=== PATIENT | male | born 2000 | race Caucasian/White ===

== ENCOUNTER 2020-02-07 08:06 | Inpatient (IN) | payer OTHER ==
[~2020-02-07] VITALS: Ht 177.8 cm; Wt 75.2 kg
[2020-02-07 09:42] LABS: BASOPHILS ABSOLUTE AUTO 0.06 K/mm3 (0.00-0.23); BASOPHILS PERCENT AUTO 0 % (0-2); EOSINOPHILS ABSOLUTE AUTO 0.01 K/mm3 (0.00-0.68); EOSINOPHILS PERCENT AUTO 0 % (0-6); Hematocrit 47.2 % (37.0-53.0); Hemoglobin 15.4 g/dL (13.5-17.5); IMMATURE GRAN ABSOLUTE AUTO 0.09 K/mm3 (0.00-0.10); IMMATURE GRAN PERCENT AUTO 1 % (0-1); LYMPHOCYTES ABSOLUTE AUTO 1.92 K/mm3 (0.84-5.20); LYMPHOCYTES PERCENT AUTO 10 % (21-46); MONOCYTES ABSOLUTE AUTO 1.89 K/mm3 (0.16-1.47); MONOCYTES PERCENT AUTO 10 % (4-13); Mean Corpuscular HGB 27.6 pg (26.0-34.0); Mean Corpuscular HGB Conc 32.6 g/dL (31.5-36.5); Mean Corpuscular Volume 85 fL (80-100); Mean Platelet Volume 8.6 fL (9.1-12.4); NEUTROPHILS PERCENT AUTO 79 % (41-73); Platelet Count 321 K/mm3 (150-400); RDW Coefficient Variation 12.1 % (11.7-14.2); RDW Standard Deviation 37.1 fL (35.1-46.3); Red Blood Cell Count 5.58 M/mm3 (4.30-5.90); White Blood Cell Count 18.97 K/mm3 (4.00-11.30)
[2020-02-07 10:05] LABS: Alanine Aminotransfer (ALT/SGP 18 U/L (12-78); Albumin, Blood 3.9 g/dL (3.4-5.0); Albumin/Globulin Ratio 0.8 (0.8-1.8); Alk Phos 66 U/L (58-237); Anion Gap 7 mmol/L (6-16); Aspartate Aminotrans (AST/SGOT 18 U/L (12-37); Blood Urea Nitrogen 7 mg/dL (8-21); Bun/Creatinine Ratio 8.3 (12.0-20.0); CO2, Blood 24 mmol/L (21-32); Chloride, Blood 107 mmol/L (98-108); Creatinine, Blood 0.84 mg/dL (0.60-1.20); Globulin, Blood 4.9 g/dL (2.2-4.0); Glomerular Filtration Rate >60 (60-); Glucose, Blood 91 mg/dL (70-99); Potassium, Blood 3.7 mmol/L (3.5-5.5); Sodium, Blood 138 mmol/L (136-145); Total Protein, Blood 8.8 g/dL (6.4-8.2)
[2020-02-07] MEDS ORDERED: FLUT.05NI (12:47)
--- NOTE | 2020-02-07 17:29 | NUR ---
ADMIT NOTE/SHIFT SUMMARY RECEIVED REPORT FROM HOMERO LENZ IN ED. PT TO ROOM AT APPROX 1240; PT SBA TRANSFERED TO BED. PT ORIENTED TO ROOM AND CALL LIGHT; EDUCATED ON FALL RISK AND USE OF CALL LIGHT. SWELLING NOTED TO RIGHT SIDE OF NECK. PT REPORTS SORE THOART STARTING APPROX 11 DAYS AGO, YESTERDAY HE TOOK A DRINK AND WAS UNABLE TO SWALLOW AND REPORTS DIFFICULTY BREATHING. PT A&Ox4; CALM AND COOPERATIVE WITH CARE. PT RESTING IN BED FOR MAJORITY OF SHIFT, UP IN ROOM IND. PT REPORTS THOART PAIN, MEDCIATED IN ED WITH TYLENOL PRIOR TO ADMISSION, PER REPORT PT IS ABLE TO SWALLLOW PILLS ONE AT A TIME BUT HAS DIFFICULTY TAKING WITH WATER. [T DENIES NASUEA, HAS HAD POOR APPETEITE DUE TO SORE THOART, BUT REQUESTING FOOD THIS EVENING. PT DENIES DIZZINESS DURING SHIFT. VSS. STARTED IV FLUIDS, IV ANTIBIOTICS AND IV STEROIDS. WILL CONTINUE TO MONITOR UNTIL REPORT GIVEN TO ONCOMING RN.
[2020-02-08 03:36] LABS: BASOPHILS ABSOLUTE AUTO 0.02 K/mm3 (0.00-0.23); BASOPHILS PERCENT AUTO 0 % (0-2); EOSINOPHILS PERCENT AUTO 0 % (0-6); Hematocrit 42.1 % (37.0-53.0); Hemoglobin 13.8 g/dL (13.5-17.5); IMMATURE GRAN ABSOLUTE AUTO 0.07 K/mm3 (0.00-0.10); IMMATURE GRAN PERCENT AUTO 0 % (0-1); LYMPHOCYTES ABSOLUTE AUTO 1.28 K/mm3 (0.84-5.20); LYMPHOCYTES PERCENT AUTO 8 % (21-46); MONOCYTES ABSOLUTE AUTO 0.89 K/mm3 (0.16-1.47); MONOCYTES PERCENT AUTO 6 % (4-13); Mean Corpuscular HGB 27.8 pg (26.0-34.0); Mean Corpuscular HGB Conc 32.8 g/dL (31.5-36.5); Mean Corpuscular Volume 85 fL (80-100); Mean Platelet Volume 8.9 fL (9.1-12.4); NEUTROPHILS ABSOLUTE AUTO 13.89 K/mm3 (1.96-9.15); NEUTROPHILS PERCENT AUTO 86 % (41-73); Platelet Count 320 K/mm3 (150-400); RDW Coefficient Variation 11.9 % (11.7-14.2); RDW Standard Deviation 36.1 fL (35.1-46.3); Red Blood Cell Count 4.96 M/mm3 (4.30-5.90); White Blood Cell Count 16.15 K/mm3 (4.00-11.30)
--- NOTE | 2020-02-08 06:40 | NUR ---
SHIFT SUMMARY PT A&O; COMPLIANT W/ CARE; VSS; HR 60'S; NSR NOTED ON TELE W/ JUNCTIONAL; O2 SATS >93 ON RA; INDEPENDENT IN ROOM; WAS ABLE TO EAT A SANDWICH AND STATED HE WAS FEELING IMPROVED; REDNESS AND SLIGHT SWELLING NOTED IN THROAT; HOT TEA BROUGHT TO PT TO SOOTHE; SLEPT SEVERAL HOURS IN THE NIGHT; CALL LIGHT IN REACH; BED IN LOWEST POSITION; WILL CONTINUE TO MONITOR CLOSELY UNTIL HAND OFF TO DAY SHIFT RN.
--- NOTE | 2020-02-08 10:50 | NUR ---
TRANSFER NOTE PT A&Ox4; CALM AND COOPERATIVE [facility] CARE. PT RESTING IN BED. PT REPORTS 4/10 PAIN TO THOART AND REPORTS SWALLOWING IS BETTER AND SWELLING IS BETTER TODAY. PT DENEIS SOB, NASUEA AND DIZZINES. IND IN ROOM. PT RECIEVING IV ANTIBIOTICS. VSS. NO OTHER ACUTE CHANGES NOTED. DURING SHIFT. REPORT GIVEN TO RN ASSUMING CARE OF PT.
--- NOTE | 2020-02-08 10:51 | NUR ---
PT TRANSFER PT TRANSFERED TO UNIT VIA [facility] A&O. PT HARPER SOB OR ANY DIFFICULTY SWALLOWING. PT INDEPENTENT IN ROOM. PT HAS 20G IN L. CALL LIGHT WITH IN REACH.
--- NOTE | 2020-02-08 15:45 | NUR ---
TRANSFER NOTE PT A&Ox3; ANXIOUS THIS AM REGARING MEDICATIONS. COOPERATIVE WITH CARE. PT RESTING IN BED, 1 PERSON ASSIST. PT REPORTS, CHRONIC "ALL OVER" PAIN; NOTIFIED DR RAMIREZ, NEW ORDERS ENTERED FOR HOME MEDICATIONS, ADMINISTERED MEDICATIONS WITH POSITIVE RESULTS. PT APPEARS TO BE SLEEPING T/O AFTERNOON. PT DENIES SOB, NAUSEA AND DIZZINESS. VSS. NO OTHER ACUTE CHANGES NOTED DURING SHIFT. REPORT GIVEN TO RN ASSUMING CARE OF PT. PT LEFT ROOM AT APPROX 1545.
--- NOTE | 2020-02-08 16:38 | NUR ---
SHIFT SUMMARY PT A&O, PT ON RA, PT HAS 20G IN LEFT HAND FLUSHES WELL NO COMPLIANTS OF SOB OR SWALLOWING CONCERNS. PT WAS NOT MEDICATED DURING THIS SHIFT FOR PAIN. PT TOLORATED A REG DIET THIS AND REQUESTED WARM TEA, PT REPORTS RELIEF WITH WARM TEA. PT IS INDEPENDENT IN ROOM AMBULATES TO THE RESTROOM.
--- NOTE | 2020-02-08 22:20 | NUR ---
PHYSICIAN COMMUNICATION NOTIFIED THE [facility] PHYSICIAN, TONIE, AT 2100 THAT THE PATIENT WAS REQUESTING A NICOTINE PATCH AND THAT HE SMOKES 4 CIGARETTES DAILY. HE ORDERD 14 MG NICOTINE PATCHES FOR THE PATIENT.
--- NOTE | 2020-02-09 06:47 | NUR ---
SHIFT SUMMARY PATIENT ALERT AND ORIENTED. HAS HAD NO COMPLAINTS OF PAIN OVERNIGHT AND DID NOT REPORT ANY DIFFICULTY SWALLOWING OR FEELINGS OF CHOKING WHEN SWALLOWING. PATIENT SLEPT WELL ALL NIGHT. IV PATENT AND FLUSHED. BED IN LOWEST POSITION WITH WHEELS LOCKED. CALL LIGHT AND BELONGINGS WITHIN REACH. REPORT GIVEN TO ONCOMING RN.
[2020-02-09] MEDS ORDERED: AMOCLA875 PO (11:08)
--- NOTE | 2020-02-09 11:30 | NUR ---
HE HAS HAD NO COMPLAINTS. HE ATE A REGULAR BREAKFAST. HE SAYS HIS THROAT HURTS WHEN HE YAWNS OR SNEEZES. HE SAYS HE IS ABLE TO SWALLOW FOOD OK. HE IS HAPPY TO BE DISCHARGED TODAY. HE IS TRAVELING THROUGH THE AREA CAMPING. HE LIVES IN [place]. RN BONE MARROW TRANSPLANT GAVE HIM A LIST OF LOWER COST HOTELS. HE PLANS TO SPEND 1 NIGHT IN TOWN TO MAKE SURE HE IS OK BEFORE HE LEAVES THE AREA AROUND THE HOSPITAL.
--- NOTE | 2020-02-09 12:53 | NUR ---
DISCHARGED @ 1222 WITH BELONGINGS AND INSTRUCTIONS. 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 THE SAXOPHONE PLAYER WILL TAKE IT TO HIM THIS EVENING. THE PATIENT SAYS HE LAST HAD HIS CAR KEYS IN [place] WHEN HE TOOK THEM OUT OF HIS POCKET. HE HAS AN EXTRA SET WITH HIM ON THIS TRIP.
== END 2020-02-09 12:22 | disposition home or self-care (01) | DRG 872 ==
LOC: ER 08:06 → PCU 11:52 → MEDS 02-08 10:44
PROVIDERS: Emergency Medicine; ADMIT Hospitalist
DX: A41.9 Sepsis, unspecified organism (principal); J36 Peritonsillar abscess; F17.210 Nicotine dependence, cigarettes, uncomplicated
CPT/HCPCS: 36415; 70491; 80053; 85025; 86308; 87081; 87430; 96361; 96365-59; 96375-59; 96376-59; 99285-25; A9270; J0295; J1100; J7030; Q9967